=== PATIENT | female | born 1950 ===

== ENCOUNTER 2023-10-22 19:22 | Emergency (ER) | payer BC, MEDICARE ==
[~2023-10-22] VITALS: Ht 162.6 cm; Wt 108.7 kg
--- OUTSIDE RECORDS SUMMARY | 2023-10-22 19:30 | XMS ---
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 E.D. VISIT COUNT (12 MO.) [address] [place] [address] 1 [facility] (Adalgisa Diana) TOTAL 16 NOTE: Visits indicate total known visits. ED/UCC VISIT TRACKING (12 MO.) 10/22/2023 19:23 [facility] [place] TYPE: Emergency COMPLAINT: - NAUSEA 10/22/2023 17:18 [facility] [place] TYPE: Emergency COMPLAINT: - BACK PAIN, UPPER ABD PAIN 10/20/2023 15:46 [facility] [place] TYPE: Emergency DIAGNOSES: - Anxiety disorder, unspecified - Pain in thoracic spine - CHEST PAIN EAR INFECTION POSSIBLE UTI 10/01/2023 13:01 [facility] [place] TYPE: Emergency DIAGNOSES: - Headache, unspecified - DIZZY 08/11/2023 10:43 [facility] [place] TYPE: Emergency DIAGNOSES: - Pain in right hand - Unspecified sprain of left wrist, initial encounter - FALL R ARM PAIN 07/21/2023 09:29 [facility] [place] TYPE: Emergency DIAGNOSES: - Orthostatic hypotension - Urinary tract infection, site not specified - DEHYDRATION FAINT 06/25/2023 20:03 [email or web address] [place] TYPE: Emergency DIAGNOSES: - Gastroparesis - Other migraine, not intractable, without status migrainosus - CHEST PAIN 05/15/2023 12:23 [email or web address] [place] TYPE: Emergency DIAGNOSES: - Urinary tract infection, site not specified - POSS UTI 03/13/2023 13:35 [email or web address] [place] TYPE: Emergency DIAGNOSES: - Infectious gastroenteritis and colitis, unspecified - Noninfective gastroenteritis and colitis, unspecified - Ulcerative (chronic) pancolitis without complications - Urinary tract infection, site not specified - DEHYDRATED 12/26/2022 15:44 [email or web address] [place] TYPE: Emergency DIAGNOSES: - Hematuria, unspecified - Hyperglycemia, unspecified - Urinary tract infection, site not specified - UTI 12/18/2022 10:27 [facility] TYPE: Emergency DIAGNOSES: - Chest pain, unspecified - Gastrointestinal hemorrhage, unspecified - Hypokalemia - Hypomagnesemia - Chest Pain - Shortness of Breath 12/14/2022 10:24 [facility] [place] [employer] [place] TYPE: Emergency DIAGNOSES: - Iron deficiency anemia, unspecified - TACHYCARDIA HYPOTENSION 11/28/2022 10:24 [facility] [place] TYPE: Emergency DIAGNOSES: - Other specified abnormal findings of blood chemistry - Single subsegmental pulmonary embolism without acute cor pulmonale - cold symptoms 11/24/2022 13:06 [email or web address] [place] TYPE: Emergency DIAGNOSES: - Cellulitis of left upper limb - Phlebitis and thrombophlebitis of unspecified site - WOUND CHECK 11/21/2022 11:34 [facility] TYPE: Emergency DIAGNOSES: - Acute kidney failure, unspecified - COVID-19 - Hypokalemia - Hypomagnesemia - Transient alteration of awareness - AMS 11/06[facility]2022 [facility] DIAGNOSES: - Nausea - Weakness - Emesis - Nausea - weakness INPATIENT VISIT TRACKING (12 MO.) No inpatient visits to display in this time frame [id number]
[2023-10-22] MEDS ORDERED: ERYTHROMYCIN BASE 250 MG PO ONE (20:00)
[2023-10-22] MEDS ORDERED: SODIUM CHLORIDE 0.9% 1,000 ML IV ONE (20:00)
[2023-10-22] MEDS ORDERED: MORPHINE SULFATE 4 MG/ML VIAL IV ONE (20:00)
[2023-10-22] MEDS ORDERED: ondansetron HCL 4 MG/2 ML VIAL IV ONE (20:00)
[2023-10-22 20:16] LABS: BASOPHILS 0.6 % (0-2); EOSINOPHILS 0.1 % (0-6); HEMATOCRIT 36.4 % (35.0-50.0); HEMOGLOBIN 11.5 g/dL (12.0-18.0); LYMPHOCYTES 26.6 % (24-44); MCH 26.1 (27-36); MCHC 31.7 g/dl (30-36); MCV 82.6 fl (81-99); MONOCYTES 8.4 % (0-12); NEUTROPHILS 64.3 % (39-80); PLATELET COUNT 276 K/uL (140-440); RBC 4.41 M/ul (4.3-5.7); RDW 14.9 (10.5-15.0)
[2023-10-22 20:38] LABS: ALBUMIN 3.6 g/dL (3.4-5.0); ALBUMIN/GLOBULIN RATIO 0.92 (1.1-2.4); ANION GAP 17.4 (7-21); BILIRUBIN, TOTAL 0.5 ng/dL (0.2-1.0); BUN/CREATININE RATIO 23.89 (6.0-28.6); CALCIUM 9.4 mg/dL (8.5-10.1); CREATININE, SERUM 1.13 mg/dL (0.55-1.02); POTASSIUM 4.4 mmol/L (3.5-5.1); PROTEIN, TOTAL 7.5 g/dL (6.4-8.2)
[2023-10-22] MEDS ORDERED: diphenhydrAMINE HCL 50 MG/ML VIAL IV ONE (20:45)
[2023-10-22] MEDS ORDERED: droPERidol 5 MG/2 ML VIAL IV ONE (20:45)
[2023-10-22 21:13] LABS: BILIRUBIN, URINE NEGATIVE (negative); BLOOD/HGB, URINE MODERATE (Negative); KETONE, URINE SMALL (Negative); LEUK ESTERASE, URINE MODERATE (negative); NITRITE, URINE POSITIVE (negative)
[2023-10-22 21:18] LABS: EPITHELIAL CELLS, URINE SQUAMOUS 1+ /lpf (0-1+)
[2023-10-22 21:19] LABS: BACTERIA, URINE 3+ /hpf (negative); CASTS, URINE NONE SEEN \\lpf; CRYSTALS, URINE NONE SEEN (0-1+); REFLEX CULTURE, URINE Yes (No); WHITE BLOOD CELLS, URINE >50 /HPF (0-5)
[2023-10-22] MEDS ORDERED: ONDANSETRON 4 MG HOME.PACK SL ONE (21:45)
[2023-10-22] MEDS ORDERED: CEFDINIR 300 MG HOME.PACK PO ONE (21:45)
[2023-10-22] MEDS ORDERED: PROMETHAZINE HCL 25 MG HOME.PACK PO ONE (21:45)
[2023-10-22] MEDS ORDERED: CEFTRIAXONE/SODIUM CHLORIDE 2 GM/100 ML PIGGYBACK IV ONE (21:45)
[2023-10-22] MEDS ORDERED: HYDROCODONE BIT/ACETAMINOPHEN 5/325 MG 1 TAB HOME.PACK PO ONE (21:45)
[2023-10-22] MEDS ORDERED: CEFDINIR300 MG PO (21:54)
[2023-10-22] MEDS ORDERED: HYDROCODON-ACE1 EA10 PO (21:54)
[2023-10-22] MEDS ORDERED: PROMETHAZINE HC25 M1 PO (21:54)
[2023-10-22 22:15] VITALS: BP 183/71
== END 2023-10-22 22:28 | disposition home or self-care (01) ==
LOC: ED 19:22
PROVIDERS: Family Medicine
DX: N12 Tubulo-interstitial nephritis, not specified as acute or chronic (principal); E11.9 Type 2 diabetes mellitus without complications; I10 Essential (primary) hypertension; Z88.5 Allergy status to narcotic agent; Z88.8 Allergy status to other drugs, medicaments and biological substances
CPT/HCPCS: 36415; 80053; 81001; 83690; 85025; A9270; J0696; J1200; J1790; J2270; J2405; J7030

== ENCOUNTER 2023-11-02 15:42 | Emergency (ER) | payer BC, MEDICARE ==
[~2023-11-02] VITALS: Ht 162.6 cm; Wt 102.5 kg
[~2023-11-02 15:42] MED LIST: CEFDINIR300 MG PO; DICYCLOMINE HCL10 MG PO; DOXEPIN HCL25 MG PO; HYDROCODON-ACE1 EA10 PO; LISINOPRIL2.5 MG PO; PIOGLITAZONE HC15 MG PO; PREGABALIN50 MG PO; PROMETHAZINE HC25 M1 PO; ROSUVASTATIN CA20 MG PO; TOUJEO SOL300 UNIT/1 SUB-Q; VENLAFAXINE HC150 MG PO
--- OUTSIDE RECORDS SUMMARY | 2023-11-02 15:44 | XMS ---
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 E.D. VISIT COUNT (12 MO.) [address] [place] [address] 1 [facility] (Adalgisa Diana) TOTAL 18 NOTE: Visits indicate total known visits. 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 [place] TYPE: Emergency COMPLAINT: - BACK PAIN, UPPER ABD PAIN 10/20/2023 15:46 [employer] [place] TYPE: Emergency DIAGNOSES: - Anxiety disorder, unspecified - Pain in thoracic spine - CHEST PAIN EAR INFECTION POSSIBLE UTI 10/01/2023 13:01 [employer] [place] TYPE: Emergency DIAGNOSES: - Headache, unspecified - DIZZY 08/11/2023 10:43 [employer] [place] TYPE: Emergency DIAGNOSES: - Pain in right hand - Unspecified sprain of left wrist, initial encounter - FALL R ARM PAIN 07/21/2023 09:29 [employer] [place] TYPE: Emergency DIAGNOSES: - Orthostatic hypotension - Urinary tract infection, site not specified - DEHYDRATION FAINT 06/25/2023 20:03 [employer] [place] TYPE: Emergency DIAGNOSES: - Gastroparesis - Other migraine, not intractable, without status migrainosus - CHEST PAIN 05/15/2023 12:23 [employer] [place] TYPE: Emergency DIAGNOSES: - Urinary tract infection, site not specified - POSS UTI 03/13/2023 13:35 [facility] [place] TYPE: Emergency DIAGNOSES: - Infectious gastroenteritis and colitis, unspecified - Noninfective gastroenteritis and colitis, unspecified - Ulcerative (chronic) pancolitis without complications - Urinary tract infection, site not specified - DEHYDRATED 12/26/2022 15:44 [facility] [place] TYPE: Emergency DIAGNOSES: - Hematuria, unspecified - Hyperglycemia, unspecified - Urinary tract infection, site not specified - UTI 12/18/2022 10:27 [facility] TYPE: Emergency DIAGNOSES: - Chest pain, unspecified - Gastrointestinal hemorrhage, unspecified - Hypokalemia - Hypomagnesemia - Chest Pain - Shortness of Breath 12/14/2022 10:24 [employer] [place] TYPE: Emergency DIAGNOSES: - Iron deficiency anemia, unspecified - TACHYCARDIA HYPOTENSION 11/28/2022 10:24 [employer] [facility] [place] TYPE: Emergency DIAGNOSES: - Other specified abnormal findings of blood chemistry - Single subsegmental pulmonary embolism without acute cor pulmonale - cold symptoms 11/24/2022 13:06 [employer] [place] TYPE: Emergency DIAGNOSES: - Cellulitis of left upper limb - Phlebitis and thrombophlebitis of unspecified site - WOUND CHECK 11/21/2022 11:34 [employer] [facility] [place] TYPE: Emergency DIAGNOSES: - Acute kidney failure, unspecified - COVID-19 - Hypokalemia - Hypomagnesemia - Transient alteration of awareness - AMS 11/06/2022 14:47 [facility] (Adalgisa Diana) TYPE: Emergency DIAGNOSES: - Nausea - Weakness - Emesis - Nausea - weakness INPATIENT VISIT TRACKING (12 MO.) No inpatient visits to display in this time frame [id number]
[2023-11-02 17:45] LABS: BILIRUBIN, URINE NEGATIVE (negative); BLOOD/HGB, URINE SMALL (Negative); KETONE, URINE NEGATIVE (Negative); LEUK ESTERASE, URINE NEGATIVE (negative); NITRITE, URINE NEGATIVE (negative)
[2023-11-02 17:54] LABS: BACTERIA, URINE RARE /hpf (negative); CRYSTALS, URINE NONE SEEN (0-1+); EPITHELIAL CELLS, URINE TRANSITIONAL 1+ /lpf (0-1+)
[2023-11-02 17:55] LABS: CASTS, URINE NONE SEEN \\lpf; COLLECTION TYPE, URINE CLEAN CATCH; REFLEX CULTURE, URINE No (No)
[2023-11-02] MEDS ORDERED: PROMETHAZINE HCL 25 MG TAB PO ONE (19:00)
[2023-11-02] MEDS ORDERED: KETOROLAC TROMETHAMINE 30 MG/ML VIAL IM ONE (19:45)
[2023-11-02] MEDS ORDERED: LIDOCAINE HCL 4% 1 EACH PATCH TD ONE (19:45)
[2023-11-02] MEDS ORDERED: LIDODERM1 EACH TOP (19:49)
[2023-11-02] MEDS ORDERED: PROMETHAZINE HC25 M1 PO (19:49)
[2023-11-02 20:50] VITALS: BP 136/50
== END 2023-11-02 20:50 | disposition home or self-care (01) ==
LOC: ED 15:42
PROVIDERS: Emergency Medicine
DX: E11.43 Type 2 diabetes mellitus with diabetic autonomic (poly)neuropathy (principal); K31.84 Gastroparesis; M54.9 Dorsalgia, unspecified; G89.29 Other chronic pain; I10 Essential (primary) hypertension; F41.9 Anxiety disorder, unspecified; E78.5 Hyperlipidemia, unspecified; J45.909 Unspecified asthma, uncomplicated; Z98.84 Bariatric surgery status; Z88.8 Allergy status to other drugs, medicaments and biological substances; Z88.5 Allergy status to narcotic agent; Z88.6 Allergy status to analgesic agent; Z79.4 Long term (current) use of insulin; Z79.899 Other long term (current) drug therapy
CPT/HCPCS: 81001; 96372; 99284; A9270; J1885